=== PATIENT | male | born 1980 | race African-American/Black ===

== ENCOUNTER 2020-06-08 16:33 | Emergency (ER) | payer OTHER ==
[~2020-06-08] VITALS: Ht 167.6 cm; Wt 87.1 kg
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
--- NOTE | 2020-06-08 16:50 | NUR ---
IV LINE ESTABLISHED BLOOD DRAWN AND SENT TO LAB.
--- NOTE | 2020-06-08 16:56 | NUR ---
AT BEDSIDE FOR EVAL.
[2020-06-08] MEDS ORDERED: IV NS 0.9% 1,000 ML BAG IV ONE (17:00)
[2020-06-08] MEDS ORDERED: ONDANSETRON HCL/PF 4 MG/2 ML VIAL IVP ONE (17:00)
[2020-06-08] MEDS ORDERED: KETOROLAC TROMETHAMINE INJ 30 MG/ML VIAL IV ONE (17:00)
[2020-06-08] MEDS ORDERED: ONDANSETRON HCL/PF 4 MG/2 ML VIAL ONE (17:02)
[2020-06-08] MEDS ORDERED: KETOROLAC TROMETHAMINE INJ 30 MG/ML VIAL ONE (17:02)
--- NOTE | 2020-06-08 17:06 | NUR ---
URINAL GIVEN UNABLE TO PROVIDE URINE SPECIMEN THIS TIME.
--- NOTE | 2020-06-08 17:11 | NUR ---
PT IS WHEELED TO CT SCAN VIA [facility].
[2020-06-08 17:19] LABS: BASOPHILS # (AUTO) 0.1 /CMM (0.0-0.2); BASOPHILS % (AUTO) 0.9 % (0.0-2.0); EOSINOPHILS % (AUTO) 1.4 % (0.0-6.0); HEMATOCRIT 41 % (39-51); HEMOGLOBIN 13.7 g/dL (13.5-17.5); LYMPHOCYTES # (AUTO) 1.4 /CMM (0.8-4.8); LYMPHOCYTES % (AUTO) 25.7 % (20.0-44.0); MEAN CORPUSCULAR HGB CONC 33 g/dl (31.0-36.0); MEAN CORPUSCULAR VOLUME 93 fL (80-96); MONOCYTES # (AUTO) 0.3 /CMM (0.1-1.30); NEUTROPHILS # (AUTO) 3.7 /CMM (1.8-8.9); PLATELET COUNT (AUTO) 210 /CMM (150-450); RED BLOOD CELL COUNT(AUTO) 4.48 MIL/uL (4.5-6.0); WHITE BLOOD COUNT (AUTO) 5.5 K/uL (4.3-11.0)
[2020-06-08 17:27] LABS: CALCIUM, SERUM 9.1 mg/dL (8.5-10.1); CREATININE 1.4 mg/dL (0.6-1.3); POTASSIUM 3.6 mmol/L (3.5-5.1)
[2020-06-08 17:33] LABS: ALBUMIN 4.2 g/dL (3.4-5.0); BILIRUBIN,DIRECT 0.1 mg/dL (0.0-0.2); BILIRUBIN,TOTAL 0.3 mg/dL (0.2-1.0); TOTAL PROTEIN, SERUM 7.5 g/dL (6.4-8.2)
--- NOTE | 2020-06-08 18:40 | NUR ---
IV removed. Catheter intact and site benign. Pressure and 4x4 applied to site. No bleeding noted. Patient discharged to home in stable condition. Written and verbal after care instructions given. Patient verbalizes understanding of instruction.
[2020-06-08 18:43] VITALS: BP 120/77
== END 2020-06-08 18:44 | disposition home or self-care (01) ==
LOC: ER 16:35
DX: N20.1 Calculus of ureter (principal); J45.909 Unspecified asthma, uncomplicated; Z88.6 Allergy status to analgesic agent
CPT/HCPCS: 36415; 74176; 80048; 80076; 85025; 96374; 96375; 99284; J1885; J2405; J7030

== ENCOUNTER 2020-07-13 11:13 | Emergency (ER) | payer OTHER ==
[~2020-07-13] VITALS: Ht 167.6 cm; Wt 86.2 kg
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
[2020-07-13] MEDS ORDERED: LIDOCAINE 2%-EPI 1:100,000 30 ML VIAL ONE (11:32)
[2020-07-13] MEDS ORDERED: IV NS 0.9% 1,000 ML BAG IV ONE (12:00)
[2020-07-13] MEDS ORDERED: CEFAZOLIN 1 GM in IV D5W 50 ML IV ONE (12:00)
[2020-07-13] MEDS ORDERED: ONDANSETRON HCL/PF 4 MG/2 ML VIAL IVP ONE (12:00)
[2020-07-13] MEDS ORDERED: MORPHINE SULFATE INJ 2 MG/ML DISP.SYRIN IV ONE (12:00)
[2020-07-13] MEDS ORDERED: ONDANSETRON HCL/PF 4 MG/2 ML VIAL ONE (12:03)
[2020-07-13] MEDS ORDERED: MORPHINE SULFATE INJ 4 MG/ML DISP.SYRIN ONE (12:03)
--- NOTE | 2020-07-13 12:09 | NUR ---
[place] [facility] [phone] [facility] NO [facility] AT THIS TIME.
--- NOTE | 2020-07-13 12:10 | NUR ---
SPOKED TO [facility] WILL FAX CLINICALS AND FACE SHEET.
--- NOTE | 2020-07-13 12:23 | NUR ---
Alba pham in [facility] - 07/13/20 at 1227 by EILEEN Called report to [facility] spoke to David Ramirez patient is dc and going back to facility
--- NOTE | 2020-07-13 12:23 | NUR ---
[facility] SPOKED TO . NO BEDS AVAILABLE.
--- NOTE | 2020-07-13 12:27 | NUR ---
CALLED [facility] ER [phone] ELIU [facility]ENNY [facility] [place].
--- NOTE | 2020-07-13 12:32 | NUR ---
[facility]SF[facility] LINE [phone] NO ANSWER.
--- NOTE | 2020-07-13 12:33 | NUR ---
Patient awake alert non distress he stated no allergy to morphine verbalized ,medication given patient to his Rt hand index lac non active bleeding v/s taken and filed
--- NOTE | 2020-07-13 12:39 | NUR ---
[facility] [phone] [facility] [phone]
[2020-07-13 12:44] LABS: BASOPHILS # (AUTO) 0.1 /CMM (0.0-0.2); BASOPHILS % (AUTO) 1.1 % (0.0-2.0); EOSINOPHILS % (AUTO) 2.7 % (0.0-6.0); HEMATOCRIT 42 % (39-51); HEMOGLOBIN 13.7 g/dL (13.5-17.5); LYMPHOCYTES # (AUTO) 2.8 /CMM (0.8-4.8); LYMPHOCYTES % (AUTO) 48.6 % (20.0-44.0); MEAN CORPUSCULAR HGB CONC 33 g/dl (31.0-36.0); MEAN CORPUSCULAR VOLUME 93 fL (80-96); MONOCYTES # (AUTO) 0.5 /CMM (0.1-1.30); MONOCYTES % (AUTO) 9.4 % (2.0-12.0); NEUTROPHILS # (AUTO) 2.2 /CMM (1.8-8.9); NEUTROPHILS % (AUTO) 38.2 % (43.0-81.0); PLATELET COUNT (AUTO) 247 /CMM (150-450); RED BLOOD CELL COUNT(AUTO) 4.49 MIL/uL (4.5-6.0); WHITE BLOOD COUNT (AUTO) 5.8 K/uL (4.3-11.0)
[2020-07-13 13:02] LABS: CALCIUM, SERUM 8.7 mg/dL (8.5-10.1); CREATININE 1.2 mg/dL (0.6-1.3); POTASSIUM 3.3 mmol/L (3.5-5.1)
[2020-07-13 13:04] LABS: BILIRUBIN,DIRECT 0.1 mg/dL (0.0-0.2); BILIRUBIN,TOTAL 0.5 mg/dL (0.2-1.0); TOTAL PROTEIN, SERUM 9.4 g/dL (6.4-8.2)
--- NOTE | 2020-07-13 13:21 | NUR ---
Patient AMA and signed form patient stated going to [facility] or [facility] noted Rt hand index finger with dressing non active bleeding his aunt @ bedside .
--- NOTE | 2020-07-13 13:23 | NUR ---
PT STATED THAT THEY CANT WAIT AND THEY WANT TO SIGN AMA FORM.
--- NOTE | 2020-07-13 13:26 | NUR ---
IV removed. Catheter intact and site benign. Pressure and 4x4 applied to site. No bleeding noted.
--- NOTE | 2020-07-13 13:26 | NUR ---
Patient does not wish to proceed with medical care recommended by Dr. Gonsales. Patient given information related to possible complications, up to and including , which could occur as a result of leaving the hospital at this time. Patient verbalizes understanding of risks involved due to leaving against medical advice. Patient has signed AMA form.
[2020-07-13 13:27] VITALS: BP 133/89
== END 2020-07-13 13:27 | disposition left against medical advice (07) ==
LOC: ER 11:15
DX: S62.620A Displaced fracture of middle phalanx of right index finger, initial encounter for closed fracture (principal); J45.909 Unspecified asthma, uncomplicated; Z88.6 Allergy status to analgesic agent; W20.8XXA Other cause of strike by thrown, projected or falling object, initial encounter; Y93.89 Activity, other specified; Y92.89 Other specified places as the place of occurrence of the external cause; Y99.8 Other external cause status
CPT/HCPCS: 36415; 73130; 80048; 80076; 85025; 85730; 96365; 96375; 99284; J0690; J2270; J2405; J3490; J7060

== ENCOUNTER 2020-07-21 15:18 | Emergency (ER) | payer OTHER ==
[~2020-07-21] VITALS: Ht 167.6 cm; Wt 86.2 kg
[2020-07-21 15:26] VITALS: BP 135/81
== END 2020-07-21 17:21 | disposition home or self-care (01) ==
LOC: ER 15:20
DX: S61.210D Laceration without foreign body of right index finger without damage to nail, subsequent encounter (principal); J45.909 Unspecified asthma, uncomplicated; X58.XXXD Exposure to other specified factors, subsequent encounter
CPT/HCPCS: 99281; A6403